=== PATIENT | female | born 1990 | race Caucasian/White ===

== ENCOUNTER 2017-04-28 16:00 | Emergency (ER) | END 2017-04-28 17:18 | disposition home or self-care (01) ==

== ENCOUNTER 2017-07-10 13:51 | Emergency (ER) | END 2017-07-10 15:54 | disposition home or self-care (01) ==

== ENCOUNTER 2017-10-10 22:13 | Emergency (ER) | END 2017-10-11 01:15 | disposition home or self-care (01) ==

== ENCOUNTER 2018-03-17 13:08 | Emergency (ER) | payer OTHER ==
[~2018-03-17] VITALS: Ht 157.5 cm; Wt 56.0 kg
[~2018-03-17 13:08] MED LIST: ALBU18HF INHALATION; AZIT250T PO; BENZ-6 PO; CYCL10TA7 PO; D-ME118S20 PO; FLUT9.9S NASAL; IBUP800T48 PO
[2018-03-17 13:11] VITALS: Ht 157.5 cm; Wt 56.0 kg
[2018-03-17] MEDS ORDERED: KETOROLAC 30 MG INJ IV STA (13:38)
[2018-03-17] MEDS ORDERED: METOCLOPRAMIDE 10 MG INJ IV STA (13:38)
[2018-03-17] MEDS ORDERED: SOD CHLORIDE 0.9% 1,000 ML IV STA (13:38)
[2018-03-17] MEDS ORDERED: DIPHENHYDRAMINE 50 MG INJ IV STA (13:38)
[2018-03-17] MEDS ORDERED: NITR-58 PO (15:00)
[2018-03-17] MEDS ORDERED: FIORICET PO (15:00)
--- NOTE | 2018-03-17 15:09 | ERD ---
ER Documentation Chief Complaint Chief Complaint pt bib self with c/o headache since this am HPI 27-year-old female presenting with headache times 1 day. She had a few episodes of vomiting. Denies fever. Describes a headache is located in the occipital region. She denies any visual changes. Denies any falls. Denies dizziness. Denies medical problems. NKDA. Had a breast tumor removed 10 years ago which was not cancerous. Social history denies ROS All systems reviewed and are negative except as per history of present illness. Medications Home Meds Active Scripts Acetamin/Butalbital/Caffeine* (Fioricet*) [id number] Tab, 1 TAB PO Q6H PRN for PAIN, #30 TAB Prov:COREY ALEJO PA-C 03/17/18 Nitrofurantoin Monohyd Macrocr* (Macrobid*) 100 Mg Capsr, 100 MG PO BID for 14 Days, CAP Prov:COREY ALEJO PA-C 03/17/18 Ibuprofen* (Motrin*) 800 Mg Tab, 800 MG PO Q6, #30 TAB Prov:SHANNON CREWS PA-C 10/11/17 Cyclobenzaprine Hcl* (Cyclobenzaprine Hcl*) 10 Mg Tablet, 10 MG PO TID, #20 TAB Prov:SHANNON CREWS PA-C 10/11/17 Azithromycin* (Zithromax*) 250 Mg Tablet, 250 MG PO .ZPACK DIRECTED, #6 TAB TAKE 500 MG (2 TABS) THE FIRST DAY THEN 250 MG (1 TAB) DAYS 2-5 Prov:KEIKO BARBA PA-C 07/10/17 Albuterol Sulfate* (Ventolin HFA*) 18 Gm Hfa.aer.ad, 2 PUFF INHALATION Q4H, #1 INHALER Prov:KEIKO BARBA PA-C 07/10/17 Benzonatate* (Tessalon Perle*) 100 Mg Capsule, 100 MG PO Q8H PRN for COUGH, #20 CAP Prov:KEIKO BARBA PA-C 07/10/17 D-Methorphan Hb/P-Epd Hcl/Bpm (BROMFED DM COUGH SYRUP) 118 Ml Syrup, 10 ML PO Q4 for COUGH for 5 Days, ML Prov:MICHELLE BECERRA PA-C 04/28/17 Fluticasone Propionate (Flonase Allergy Relief) 9.9 Ml [place].susp, 1 SPRAY NASAL BID, #1 BOTTLE TO EACH NOSTRIL Prov:SUNNY BECERRABEAU KEY 04/28/17 Allergies Allergies: Coded Allergies: No Known Allergy (Unverified , 11/27/15) PMhx/Soc Medical and Surgical Hx: pt denies Medical Hx History of Surgery: Yes (RIGHT BREAST LUMPECTOMY ) Anesthesia Reaction: No Hx Neurological Disorder: No Hx Respiratory Disorders: No Hx Cardiac Disorders: No Hx Psychiatric Problems: No Hx Miscellaneous Medical Probl: No Hx Alcohol Use: No Hx Substance Use: No Hx Tobacco Use: No Smoking Status: Never smoker FmHx Family History: No diabetes, No coronary disease, No other Physical Exam Vitals Vital Signs Date Temp Pulse Resp B/P (MAP) Pulse Ox O2 O2 Flow FiO2 Time Delivery Rate 03/17/18 98.6 100 16 117/66 100 13:11 (83) Physical Exam GENERAL: The patient is well-appearing, well-nourished, in no acute distress HEENT: Atraumatic. Conjunctivae are pink. Pupils equal, round, and reactive to light. There is no scleral icterus. Tympanic membranes clear bilaterally. Oropharynx clear. CHEST: Clear to auscultation bilaterally. There are no rales, wheezes or rhonchi. HEART: Regular rate and rhythm. No murmurs, clicks, rubs or gallops NEUROLOGIC: Alert and oriented. Cranial nerves II through XII intact. Motor strength in all 4 extremities with 5 out of 5 strength. Sensation grossly intact. Normal speech and gait. Babinski negative. SKIN: There is no apparent rash or petechiae. The skin is warm and dry. Results 24 hrs Laboratory Tests Test 03/17/18 14:01 03/17/18 14:03 Bedside Urine pH (LAB) 8.5 Bedside Urine Protein (LAB) Negative Bedside Urine Glucose (UA) Negative Bedside Urine Ketones (LAB) Negative Bedside Urine Blood Trace-intact Bedside Urine Nitrite (LAB) Negative Bedside Urine Leukocyte Esterase (L 1+ POC Beta HCG, Qualitative NEGATIVE Current Medications Medications Dose Sig/[place] Start Time Status Last (Trade) Ordered Route PRN Stop Time Admin Dose Reason Admin Sodium 1,000 ml @ Q1H STAT 03/17/18 DC 03/17/18 Chloride 1,000 mls/hr IV 13:38 14:00 03/17/18 14:37 10 mg ONCE STAT 03/17/18 DC 03/17/18 Metoclopramid IV 13:38 14:00 e HCl 03/17/18 13:39 (Reglan) Ketorolac 30 mg ONCE STAT 03/17/18 DC 03/17/18 Tromethamine IV 13:38 14:16 (Toradol) 03/17/18 13:39 25 mg ONCE STAT 03/17/18 DC 03/17/18 Diphenhydrami IV 13:38 14:00 ne HCl 03/17/18 13:39 (Benadryl) Procedures/MDM DIAGNOSTIC IMAGING REPORT Patient: MARILEE RODRIGUEZ : 1990 Age: 27 Sex: F MR #: [id number] DOS: 03/17/18 1338 Ordering MD: LORIE ALEJO PA-C Location: [facility] Room/Bed: PROCEDURE: CT Brain without contrast. CLINICAL INDICATION: Headache. TECHNIQUE: A multiplanar CT of the brain was performed on a CT scanner utilizing axial imaging from the skull base through the vertex without . The CTDIvol is 39.63 mGy and the DLP is 634.23 mGycm. One or more of the following dose reduction techniques were utilized: Automated exposure control, adjustment of the mA and/or kV according to patient size, use of iterative reconstruction technique. DICOM images are available. COMPARISON: None FINDINGS: No evidence of intracranial hemorrhage or abnormal extra-axial fluid collection. No edema, mass effect, or shift. The brain parenchyma is otherwise normal attenuation and morphology with preservation of marshall white differentiation.The ventricles and subarachnoid spaces are prominent compatible with volume loss. The posterior fossa contents, brainstem, craniocervical junction, orbits, pituitary axis, paranasal sinuses, mastoid air cells, and calvarium are unremarkable. IMPRESSION: 1. No intracranial hemorrhage or acute intracranial abnormality . 2. MRI may be considered for further evaluation as clinically warranted. ER Course: Toradol, Benadryl and Reglan given ED. 1 L normal saline given ED. Patient's urine has 1+ leukocytes. On reevaluation patient was resting com fortably and stated her symptoms had improved. MDM: 27-year-old female presenting with headache. I have low suspicion for intr acranial hemorrhage or neuro deficit. Patient's exam is non-concerning. Patient is nontoxic appearing. Patient is discharged stricter precautions and supportive medications. Patient's findings of urine were consistent with possible infection so I will treat with antibiotics. All questions answered at discharge Departure Diagnosis: Primary Impression: Headache Condition: Stable Patient Instructions: Understanding Urinary Tract Infections (UTIs), Self-Care for Headaches Referrals: ZAIDA TONY MD (PCP) Additional Instructions: FOLLOW UP WITH YOUR PRIMARY CARE PHYSICIAN TOMORROW.Return to this facility if y ou are not improving as expected. COREY ALEJO PA-C Mar 17, 2018 15:09
[2018-03-17 15:11] VITALS: BP 110/58; PULSE 78; RESP 16
== END 2018-03-17 15:12 | disposition home or self-care (01) ==
LOC: FTE 13:08
DX: R51 Headache (principal)
CPT/HCPCS: 70450; 81003; 81025; 96361; 96374; 96375; J1200; J1885; J2765; J7030; Z7502